=== PATIENT | female | born 1935 | race Caucasian/White ===

== ENCOUNTER → 2017-08-08 | Outpatient (CLI) | payer MEDICARE, BC ==
--- NOTE | 2017-08-08 11:10 | BD ---
EXAMINATION TYPE: MG DEXA axial skeleton. DATE OF EXAM: 08/08/2017 COMPARISON: NONE CLINICAL HISTORY: Height: 62.5 Weight: 182.2 FRAX RISK QUESTIONS: Alcohol (3 or more units per day): NO Family History (Parent hip fracture): NO Glucocorticoids (More than 3mos): NO (Ex: prednisone, prednisolone, methylprednisolone, dexamethasone, and hydrocortisone). History of Fracture in Adulthood: NO Secondary Osteoporosis: 1. Type 1 Diabetes: NO 2. Hyperthyroidism: NO 3. Menopause before 45: NO 4. Malnutrition: NO 5. Chronic liver disease: NO Rheumatoid Arthritis: NO Current Tobacco Use: NO RISK FACTORS HISTORY OF: Hip Fracture (Right/Left): NO Spine Fracture: NO History of Wrist Fracture: NO Surgery to Spine/Hip(right/left)/Wrist (right/left): NO Family History of Osteoporosis: NO Active: YES Diet low in dairy products/other sources of calcium: NO Postmenopausal woman: AROUND AGE 57 Lost more than 2 inches in height since high school: YES Frequent falls: NO Poor Health: NO Hyperparathyroidism: NO Adrenal Insufficiency: NO MEDICATIONS: HIGH BP MEDS Thyroid Medications: THYROID How Long: SINCE AGE 19 Additional History: EXAM MEASUREMENTS: Bone mineral densitometry was performed using the [employer]. Bone mineral density as measured about the Lumbar spine is: ----- L1-L4(G/cm2): 1.236 T Score Values are as follows: ----- L2: 0.8 ----- L3: 0.0 ----- L4: 1.1 ----- L1-L4: 0.5 Bone mineral density has: INCREASED 0.7 % since study of: 07.31.2016 Bone mineral density about the R hip (g/cm2): 0.833 Bone mineral density about the L hip (g/cm2): 0.855 T Score values are as follows: -----R Neck: -1.5 -----L Neck: -1.3 -----R Total: -1.0 -----L Total: -1.0 Bone mineral density has: INCREASED 0.9 % since study of: 07.31.2016 IMPRESSION: Osteopenia about the bilateral femora. NOTE: T-SCORE=SD OF THE YOUNG ADULT MEAN.
== END | disposition home or self-care (01) ==
LOC: RADBDWWP 07:30
PROVIDERS: ATTEND Internal Medicine Hematology & Oncology
DX: C50.919 Malignant neoplasm of unspecified site of unspecified female breast (principal); M85.88 Other specified disorders of bone density and structure, other site
CPT/HCPCS: 77080

== ENCOUNTER → 2018-07-15 | Outpatient (CLI) | payer MEDICARE, BC ==
--- NOTE | 2018-07-15 11:58 | MM ---
Reason for exam: additional evaluation requested from prior study. Last mammogram was performed 1 year ago. History: Patient is postmenopausal and has history of breast cancer at age 69. Mastectomy of the left breast, September 13, 2004. Chemotherapy. Took estrogen for 5 years. Took progesterone for 5 years. Taking antineoplastic for 5 years beginning at age 69. Physical Findings: Nurse did not find any significant physical abnormalities on exam. MG 3D Diag Mammo W/Cad RT CC and MLO view(s) were taken of the right breast. Prior study comparison: July 14, 2017, right breast MG 3d diag mammo w/cad RT. July 10, 2016, right breast MG 3d diag mammo w/cad RT. There are scattered fibroglandular densities. No significant new findings when compared with previous films. These results were verbally communicated with the patient and result sheet given to the patient on 07/15/18. ASSESSMENT: Benign, BI-RAD 2 RECOMMENDATION: Follow-up diagnostic mammogram of the right breast in 1 year.
== END | disposition home or self-care (01) ==
LOC: RADMAMWWP 10:24
PROVIDERS: ATTEND Internal Medicine Hematology & Oncology
DX: Z08 Encounter for follow-up examination after completed treatment for malignant neoplasm (principal); Z85.3 Personal history of malignant neoplasm of breast
CPT/HCPCS: 77065; G0279; 77061

== ENCOUNTER → 2019-07-22 | Outpatient (CLI) | payer MEDICARE, BC ==
--- NOTE | 2019-07-22 11:13 | MM ---
Reason for exam: additional evaluation requested from prior study. Last mammogram was performed 1 year ago. History: Patient is postmenopausal and has history of breast cancer at age 69. Mastectomy of the left breast, September 13, 2004. Chemotherapy. Took estrogen for 5 years. Took progesterone for 5 years. Taking antineoplastic for 5 years beginning at age 69. Physical Findings: Nurse did not find any significant physical abnormalities on exam. MG 3D Diag Mammo W/Cad RT CC and MLO view(s) were taken of the right breast. Prior study comparison: July 15, 2018, right breast MG 3d diag mammo w/cad RT. July 14, 2017, right breast MG 3d diag mammo w/cad RT. There are scattered fibroglandular densities. There is a stable 4mm upper outer quadrant middle depth low density mass. Benign appearing calcifications in the right breast. No suspicious abnormality. No significant new findings when compared with previous films. These results were verbally communicated with the patient and result sheet given to the patient on 07/22/19. ASSESSMENT: Benign, BI-RAD 2 RECOMMENDATION: Follow-up diagnostic mammogram of the right breast in 1 year.
== END | disposition home or self-care (01) ==
LOC: RADMAMWWP 06:42
PROVIDERS: ATTEND Internal Medicine Hematology & Oncology
DX: Z08 Encounter for follow-up examination after completed treatment for malignant neoplasm (principal); Z85.3 Personal history of malignant neoplasm of breast
CPT/HCPCS: 77061; 77065

== ENCOUNTER → 2019-08-19 | Outpatient (CLI) | payer MEDICARE, BC ==
--- NOTE | 2019-08-19 09:58 | BD ---
EXAMINATION TYPE: Axial Bone Density DATE OF EXAM: 08/19/2019 COMPARISON: 08.08.2017 CLINICAL HISTORY: 84 YR OLD FEMALE....ICD-10 CODE: M89.9 DISORDER OF BONE Height: 60.9 Weight: 189 FRAX RISK QUESTIONS: NOTHING ADDITIONAL TO NOTE HERE RISK FACTORS HISTORY OF: Postmenopausal woman: YES, AT AGE 55 YRS OLD Take estrogen and/or progesterone medications: YES, PREMARIN FOR ABOUT 2 YRS IN THE PAST, NONE NOW Lost more than 2 inches in height since high school: YES Hyperparathyroidism: NO Adrenal Insufficiency: NO MEDICATIONS: Thyroid Medications: ARMOR THYROID IN THE PAST, BANQUET LINE COOK THYROID NOW, SINCE TEEN Additional Medications: BP MEDS, HX OF CHEMO, CALCIUM AND VIT D Additional History: HX OF LT BREAST CANCER, HYPERTENSION, EXAM MEASUREMENTS: Bone mineral densitometry was performed using the [employer] System. Bone mineral density as measured about the Lumbar spine is: ----- L1-L4(G/cm2): 1.251 T Score Values are as follows: ----- L1: 0.1 ----- L2: 1.5 ----- L3: -0.2 ----- L4: 0.9 ----- L1-L4: 0.6 Bone mineral density has: Increased 0.3% since study of: 08.08.2017 Bone mineral density about the R hip (g/cm2): 0.890 Bone mineral density about the L hip (g/cm2): 0.916 T Score values are as follows: -----R Neck: -1.4 -----L Neck: -1.3 -----R Total: -0.9 -----L Total: -0.7 Bone mineral density has: Increased 2.5% since study of: 08.08.2017 FRAX%s: THERE IS A 12.1% CHANCE FOR A MAJOR OSTEOPOROTIC FX AND A 3.0% FOR HIP....PROBABILITY FOR F X IN 10 YRS TIME IMPRESSION: Osteopenia (T Score between -2.5 and -1). There is slightly increased risk of fracture and the patient may be considered for treatment. Re-Screen 2-5 years. NOTE: T-SCORE=SD OF THE YOUNG ADULT MEAN.
== END | disposition home or self-care (01) ==
LOC: RADBDWWP 07:49
PROVIDERS: ATTEND Internal Medicine Hematology & Oncology
DX: M85.88 Other specified disorders of bone density and structure, other site (principal)
CPT/HCPCS: 77080

== ENCOUNTER → 2020-08-11 | Outpatient (CLI) | payer MEDICARE, BC ==
--- NOTE | 2020-08-11 13:49 | MM ---
Reason for exam: additional evaluation requested from prior study. Last mammogram was performed 1 year and 1 month ago. History: Patient is postmenopausal and has history of breast cancer at age 69. Mastectomy of the left breast, September 13, 2004. Chemotherapy. Took estrogen for 5 years. Took progesterone for 5 years. Taking antineoplastic for 5 years beginning at age 69. Physical Findings: Nurse did not find any significant physical abnormalities on exam. MG 3D Diag Mammo W/Cad RT CC and MLO view(s) were taken of the right breast. Prior study comparison: July 22, 2019, right breast MG 3d diag mammo w/cad RT. July 15, 2018, right breast MG 3d diag mammo w/cad RT. There are scattered fibroglandular densities. Finding: There are typically benign round, course, diffuse/scattered calcifications in the right breast. No significant changes in finding since July 22, 2019 and July 15, 2018. These results were verbally communicated with the patient and result sheet given to the patient on 08/11/20. ASSESSMENT: Benign, BI-RAD 2 RECOMMENDATION: Follow-up diagnostic mammogram of the right breast in 1 year.
== END | disposition home or self-care (01) ==
LOC: RADMAMWWP 12:25
PROVIDERS: ATTEND Internal Medicine Hematology & Oncology
DX: Z08 Encounter for follow-up examination after completed treatment for malignant neoplasm (principal); Z85.3 Personal history of malignant neoplasm of breast
CPT/HCPCS: 77065; G0279; 77061

== ENCOUNTER → 2021-10-01 | Outpatient (CLI) | payer MEDICARE, BC ==
--- NOTE | 2021-10-01 12:00 | MM ---
Reason for exam: additional evaluation requested from prior study. Last mammogram was performed 1 year and 2 months ago. History: Patient is postmenopausal and has history of breast cancer at age 69. Mastectomy of the left breast, September 13, 2004. Chemotherapy. Took estrogen for 5 years. Took progesterone for 5 years. Taking antineoplastic for 5 years beginning at age 69. Physical Findings: Nurse did not find any significant physical abnormalities on exam. MG 3D Diag Mammo W/Cad RT CC and MLO view(s) were taken of the right breast. Prior study comparison: August 11, 2020, right breast MG 3d diag mammo w/cad RT. July 22, 2019, right breast MG 3d diag mammo w/cad RT. No significant new findings when compared with previous films. These results were verbally communicated with the patient and result sheet given to the patient on 10/01/21. ASSESSMENT: Benign, BI-RAD 2 RECOMMENDATION: Follow-up diagnostic mammogram of the right breast in 1 month.
--- NOTE | 2021-10-02 08:56 | BD ---
EXAMINATION TYPE: Axial Bone Density DATE OF EXAM: 10/01/2021 COMPARISON: 08/19/2019 CLINICAL HISTORY: Height: 61.2 IN Weight: 173 LBS RISK FACTORS HISTORY OF: Active: YES Postmenopausal woman: TOTAL HYST AGE 56 Take estrogen and/or progesterone medications: NOT NOW How lon YEARS Lost more than 2 inches in height since high school: YES 3" MEDICATIONS: Thyroid Medications: YES Which medication: Levothyroxine How Long: SINCE AGE 18 Additional Medications: CALCIUM, VIT D, LEVOTHYROXINE, HIGH BLOOD PRESSURE MEDS Additional History: BREAST CANCER WITH CHEMO EXAM MEASUREMENTS: Bone mineral densitometry was performed using the [employer] System. Bone mineral density as measured about the Lumbar spine is: ----- L1-L4(G/cm2): 1.182 T Score Values are as follows: ----- L2: 0.6 ----- L3: -0.3 ----- L4: 0.0 ----- L1-L4: 0.0 Bone mineral density has: Decreased -5.4% since study of: 08/19/2019 Bone mineral density about the R hip (g/cm2): 0.817 Bone mineral density about the L hip (g/cm2): 0.785 T Score values are as follows: -----R Neck: -1.6 -----L Neck: -1.8 -----R Total: -1.3 -----L Total: -1.3 Bone mineral density has: Decreased -6.5% since study of: 08/19/2019 IMPRESSION: Osteopenia (T Score between -2.5 and -1). There is slightly increased risk of fracture and the patient may be considered for treatment. Re-Screen 2-5 years. NOTE: T-SCORE=SD OF THE YOUNG ADULT MEAN.
== END | disposition home or self-care (01) ==
LOC: RADMAMWWP 09:49
PROVIDERS: ATTEND Internal Medicine Hematology & Oncology
DX: M85.89 Other specified disorders of bone density and structure, multiple sites (principal); R92.8 Other abnormal and inconclusive findings on diagnostic imaging of breast; Z78.0 Asymptomatic menopausal state; Z85.3 Personal history of malignant neoplasm of breast; Z90.12 Acquired absence of left breast and nipple
CPT/HCPCS: 77080; 77065; G0279; 77061

== ENCOUNTER → 2024-10-06 | Outpatient (CLI) | payer MEDICARE, BC | END | disposition home or self-care (01) | LOC: RADMAMWWP 08:23 | PROVIDERS: ATTEND Internal Medicine Hematology & Oncology | DX: Z53.9 Procedure and treatment not carried out, unspecified reason (principal) ==